=== PATIENT | male | born 1985 | race Caucasian/White ===

== ENCOUNTER 2019-04-21 09:01 | Emergency (ER) | payer BC ==
--- NOTE | 2019-04-21 09:34 | EDM.PDOC ---
ED HPI GENERAL MEDICAL PROBLEM - General Chief Complaint: Cardiovascular Problem Stated Complaint: chest pain Time Seen by Provider: 04/21/19 09:15 - History of Present Illness INITIAL COMMENTS - FREE TEXT/NARRATIVE: This is an otherwise healthy 33-year-old male presents with concerns of chest pain and dyspnea. He reports that he woke up at approximately 7 AM this morning and went to get a drink of water when he noticed that he was short of breath. He also noted some pleuritic upper left-sided chest pain. Earlier this morning had transient pain in his right neck as well. Now his primary concern is dyspnea with exertion as well as the pleuritic pain in his chest. He has no history of similar pain in the past. No history of pulmonary disease. No history of cardiac disease. He's had no associated cough, fevers, and otherwise been feeling normal self. No history of DVT, no recent surgeries or immobilizations. He is seen today with his mother who reports a extensive history of cardiovascular disease in her family, including several siblings with an AL in the 30s. Chest Pain Score (Numeric/FACES): 2 - Related Data Allergies Allergy/AdvReac Type Severity Reaction Status Date / Time No Known Allergies Allergy Verified 04/21/19 09:06 Home Meds: Home Meds NK [No Known Home Meds] 04/21/19 [History] Past Medical History HEENT History: Reports: None Cardiovascular History: Reports: Hypertension Endocrine/Metabolic History: Reports: Obesity/BMI 30+ - Past Surgical History Head Surgeries/Procedures: Reports: None HEENT Surgical History: Reports: Visual, Other (See Below) Other HEENT Surgeries/Procedures: PRK surgery Cardiovascular Surgical History: Reports: None Endocrine Surgical History: Reports: None Dermatological Surgical History: Reports: None Social & Family History - Tobacco Use Smoking Status *Q: Never Smoker Second Hand Smoke Exposure: No - Caffeine Use Caffeine Use: Reports: None - Recreational Drug Use Recreational Drug Use: No ED ROS GENERAL - Review of Systems Review Of Systems: See Below Constitutional: Reports: No Symptoms HEENT: Reports: No Symptoms Respiratory: Reports: Shortness of Breath Cardiovascular: Reports: Chest Pain Endocrine: Reports: No Symptoms GI/Abdominal: Reports: No Symptoms : Reports: No Symptoms Musculoskeletal: Reports: No Symptoms Skin: Reports: No Symptoms Neurological: Reports: No Symptoms Psychiatric: Reports: No Symptoms Hematologic/Lymphatic: Reports: No Symptoms Immunologic: Reports: No Symptoms ED EXAM, GENERAL - Physical Exam Exam: See Below Exam Limited By: No Limitations General Appearance: Alert, No Apparent Distress Ears: Normal External Exam Nose: Normal Inspection Throat/Mouth: Normal Inspection Head: Atraumatic, Normocephalic Neck: Normal Inspection Respiratory/Chest: No Respiratory Distress, Lungs Clear Cardiovascular: Regular Rate, Rhythm, No Edema GI/Abdominal: Soft, Non-Tender Extremities: Normal Inspection. No: Pedal Edema Neurological: Alert, Oriented Psychiatric: Normal Affect, Normal Mood Skin Exam: Warm, Dry EKG INTERPRETATION EKG Date: 04/21/19 Rhythm: NSR P-Wave: Present QRS: Normal ST-T: Other (inferior T wave inversion) Course - Vital Signs Last Recorded V/S: Last Vital Signs Temp 36.0 C 04/21/19 09:15 Pulse 72 04/21/19 10:02 Resp 13 04/21/19 10:02 BP 149/98 H 04/21/19 10:02 Pulse Ox 94 L 04/21/19 10:02 - Orders/Labs/Meds Orders: Active Orders 24 hr Category Date Time Status EKG Documentation Completion [RC] ASDIRECTED Care 04/21/19 09:31 Active EKG 12 Lead [EK] Routine Ther 04/21/19 09:31 Ordered Labs: Laboratory Tests 04/21/19 04/21/19 04/21/19 Range/Units 09:36 09:36 09:36 WBC 6.2 (4.5-11.0) K/uL RBC 5.23 (4.30-5.90) M/uL Hgb 15.8 H (12.0-15.0) g/dL Hct 45.9 (40.0-54.0) % MCV 88 (80-98) fL MCH 30 (27-31) pg MCHC 34 (32-36) % Plt Count 202 (150-400) K/uL D-Dimer, Quantitative < 100 (0.0-400.0) ng/mL Sodium 141 (140-148) mmol/L Potassium 3.8 (3.6-5.2) mmol/L Chloride 103 (100-108) mmol/L Carbon Dioxide 25 (21-32) mmol/L Anion Gap 13.1 (5.0-14.0) mmol/L BUN 8 (7-18) mg/dL Creatinine 1.0 (0.8-1.3) mg/dL Est Cr Clr Drug Dosing 148.82 mL/min Estimated GFR (MDRD) > 60 (>60) Glucose 97 (74-106) mg/dL Calcium 9.3 (8.5-10.1) mg/dL Troponin I < 0.017 (0.000-0.056) ng/mL 04/21/19 Range/Units 12:48 WBC (4.5-11.0) K/uL RBC (4.30-5.90) M/uL Hgb (12.0-15.0) g/dL Hct (40.0-54.0) % MCV (80-98) fL MCH (27-31) pg MCHC (32-36) % Plt Count (150-400) K/uL D-Dimer, Quantitative (0.0-400.0) ng/mL Sodium (140-148) mmol/L Potassium (3.6-5.2) mmol/L Chloride (100-108) mmol/L Carbon Dioxide (21-32) mmol/L Anion Gap (5.0-14.0) mmol/L BUN (7-18) mg/dL Creatinine (0.8-1.3) mg/dL Est Cr Clr Drug Dosing mL/min Estimated GFR (MDRD) (>60) Glucose (74-106) mg/dL Calcium (8.5-10.1) mg/dL Troponin I < 0.017 (0.000-0.056) ng/mL - Re-Assessments/Exams Free Text/Narrative Re-Assessment/Exam: This is a 33-year-old male, otherwise healthy, presents with left-sided pleuritic chest pain and dyspnea. On exam he is noted to have normal vital signs and no significant abnormalities. He has no chest wall tenderness. Was noted to be mildly tachycardic in triage. History and exam is not suggestive of particular etiology of his symptoms. EKG is generally unremarkable, but does have some nonspecific T-wave changes inferiorly. Although he is currently PERC rule negative will get d-dimer to further rule out PE given pleuritic pain and tachycardia when he first presented. Additionally we will get basic labs and troponin testing, chest x-ray, currently relatively asymptomatic so no treatment at this time. 04/21/19 09:45 Free Text/Narrative Re-Assessment/Exam: Labs and imaging unremarkable. Vitals remained stable during period of observation. I reevaluated the patient and he reports his symptoms are largely resolved. we await a delta troponin. 04/21/19 11:45 Free Text/Narrative Re-Assessment/Exam: Delta trop negative Remains asymptomatic Safe for discharge 04/21/19 14:08 Departure - Departure Time of Disposition: 14:08 Disposition: Home, Self-Care 01 Clinical Impression: Chest pain Qualifiers: Chest pain type: unspecified Qualified Code(s): R07.9 - Chest pain, unspecified Referrals: PCP,None [Primary Care Provider] - Forms: ED Department Discharge Additional Instructions: We did not find a cause for your pain but your work-up is re-assuring Please follow up with your primary doctor as needed - My Orders Last 24 Hours: My Active Orders 04/21/19 09:31 EKG Documentation Completion [RC] ASDIRECTED EKG 12 Lead [EK] Routine - Assessment/Plan Last 24 Hours: My Active Orders 04/21/19 09:31 EKG Documentation Completion [RC] ASDIRECTED EKG 12 Lead [EK] Routine
--- NOTE | 2019-04-21 10:08 | CRLCR ---
Indication: Left-sided chest pain. Technique: PA and lateral views the chest. Comparison: None Findings: The heart is normal in size. The lungs are clear. No infiltrate, pleural effusion, or pneumothorax is identified. Impression: No acute cardiopulmonary process. Dictated by Gayatri Tamayo MD @ Apr 21 2019 10:05AM Signed by Dr. Gayatri Tamayo @ Apr 21 2019 10:06AM
== END 2019-04-21 14:16 | disposition home or self-care (01) ==
LOC: JP.ED 09:01
DX: R07.81 Pleurodynia (principal); E66.9 Obesity, unspecified; I10 Essential (primary) hypertension; Z68.33 Body mass index [BMI] 33.0-33.9, adult
CPT/HCPCS: 36415; 71046; 80048; 84484; 85027; 85379; 93005; 99285-25